=== PATIENT | male | born 1965 | race Caucasian/White ===

== ENCOUNTER 2023-08-17 13:10 | Emergency (ER) | payer BC ==
[2023-08-17] MEDS ORDERED: Ondansetron PF 4 MG/2 ML Vial ONE (14:03)
[2023-08-17] MEDS ORDERED: Ketorolac Tromethamine 30 MG/ML VIAL ONE (14:03)
[2023-08-17] MEDS ORDERED: Morphine 4 MG/ML VIAL ONE ×2 (14:03→16:01)
[2023-08-17] MEDS ORDERED: Morphine 2 MG/ML VIAL ONE ×2 (14:03→16:01)
[2023-08-17] MEDS ORDERED: methylPREDNISolone Sod Succ/PF 125 MG/2 ML VIAL ONE (16:57)
== END 2023-08-17 17:39 | disposition home or self-care (01) ==
LOC: CSHERS 13:10
DX: M54.16 Radiculopathy, lumbar region (principal); F17.210 Nicotine dependence, cigarettes, uncomplicated
CPT/HCPCS: 94760; 96374; 96375; 96376; J1885; J2270; J2272; J2405; J2930

== ENCOUNTER 2023-10-29 08:57 | Outpatient (CLI) | payer BC | END 2023-10-29 08:58 | disposition home or self-care (01) | LOC: CSHWCC 08:57 | PROVIDERS: ATTEND Preventive Medicine Undersea and Hyperbaric Medicine | DX: L89.622 Pressure ulcer of left heel, stage 2 (principal) | CPT/HCPCS: 99214; G0463 ==